=== PATIENT | female | born 1975 | race Caucasian/White ===

== ENCOUNTER 2019-08-10 14:23 | Outpatient (CLI) | payer OTHER, SELFPAY ==
[2019-08-10 14:48] LABS: Basophils % 0.3 %; Eosinophils # 0.1 10^3/uL (0.0-0.8); Eosinophils % 0.5 %; Hematocrit 41.2 % (37.0-47.0); Hemoglobin 13.6 g/dL (11.5-15.3); Lymphocytes % 30.8 %; Mean Corpuscular Hemoglobin 29.1 pg (28.0-34.0); Mean Platelet Volume 10.8 fL (7.4-10.4); Monocytes # 0.5 10^3/uL (0.2-0.9); Monocytes % 5.6 %; Neutrophils # 6.1 10^3/uL (1.8-7.7); Neutrophils % 62.6 %; Nucleated Red Blood Cells % 0 %; Platelet Count 315 10^3/cmm (130-400); Red Blood Count 4.68 10^6/uL (4.1-5.3); Red Cell Distribution Width 12.9 % (12.1-15.1); White Blood Count 9.7 10^3/uL (4.0-10.0)
== END 2019-08-10 14:24 | disposition home or self-care (01) ==
LOC: LAB 14:27
PROVIDERS: Family Provider Family Medicine; PCP Family Medicine; Visit Provider Family Medicine
DX: K85.90 Acute pancreatitis without necrosis or infection, unspecified (principal)
CPT/HCPCS: 36415; 85025; 86140

== ENCOUNTER 2020-04-14 14:42 | Outpatient (CLI) | payer OTHER, SELFPAY ==
--- NOTE | 2020-04-14 15:11 | MM_ITS ---
WS: [id number] BILATERAL DIGITAL SCREENING MAMMOGRAPHY WITH CAD CLINICAL INFORMATION: SCREEN HISTORY: Screening mammogram. No current complaints. COMPARISON: TECHNIQUE: Bilateral CC and MLO views. FINDINGS: The breasts are composed of heterogeneous fibroglandular density tissue, which can limit the detectio n of small underlying mass lesions. Asymmetric density upper inner left breast measuring 17 mm more p rominent compared to previous. Recommend spot compression views and ultrasound for further evaluation . Right breast is unchanged in appearance. IMPRESSION: MM/[place] [id number] BI-RADS: 0-Incomplete: Need additional imaging evaluation FOLLOW UP: Need Additional Imaging RECOMMEND SPOT COMPRESSION VIEWS AND ULTRASOUND LEFT BREAST
== END 2020-04-14 14:43 | disposition home or self-care (01) ==
LOC: RADSHAW 14:50
PROVIDERS: PCP Family Medicine; Visit Provider Family Medicine
DX: Z12.31 Encounter for screening mammogram for malignant neoplasm of breast (principal); N64.89 Other specified disorders of breast
CPT/HCPCS: 77067

== ENCOUNTER 2022-08-11 13:17 | Emergency (ER) | payer OTHER, SELFPAY ==
--- NOTE | 2022-08-11 13:25 | ECG_ITS ---
[facility] Test Date: 2022-08-11 Pat Name: Sue Danielson Department: Room: Gender: Female Vocational Rehabilitation Counselor: : 1975 Requested By: Ty Escobar Order Number: [id number] Gilbert MD: Aggie Ng M.D. Measurements Intervals [place] Rate: 96 P: 25 [place]: 160 QRS: 33 QRSD: 81 T: 26 QT: 355 QTc: 449 Interpretive Statements SINUS RHYTHM No previous ECG available for comparison Electronically Signed On 08-12-2022 10:11:32 OTR FLATBED DRIVER by Aggie Ng M.D. [id number] f
[2022-08-11 13:35] VITALS: BP 209/122; PULSE 92; RESP 17; TEMP 37.1; O2SAT 99; BMI 34.3
[2022-08-11 14:48] LABS: Basophils % 0.3 %; Eosinophils # 0.1 10^3/uL (0.0-0.8); Eosinophils % 0.7 %; Hematocrit 41.4 % (37.0-47.0); Hemoglobin 13.3 g/dL (11.5-15.3); Lymphocytes # 2.5 10^3/uL (0.8-4.8); Lymphocytes % 34.1 %; Mean Corpuscular HGB Conc 32.1 g/dL (30.0-36.0); Mean Corpuscular Hemoglobin 27.3 pg (28.0-34.0); Mean Corpuscular Volume 84.8 fl (81-99); Mean Platelet Volume 10.4 fL (7.4-10.4); Monocytes # 0.5 10^3/uL (0.2-0.9); Monocytes % 7.3 %; Neutrophils # 4.15 10^3/uL (1.8-7.7); Neutrophils % 57.5 %; Nucleated Red Blood Cells % 0 %; Platelet Count 307 10^3/cmm (130-400); Red Blood Count 4.88 10^6/uL (4.1-5.3); Red Cell Distribution Width 13.7 % (12.1-15.1); White Blood Count 7.2 10^3/uL (4.0-10.0)
[2022-08-11 15:07] LABS: Anion Gap 17.1 (5-19); Blood Urea Nitrogen 8 mg/dL (6-20); Calcium 8.9 mg/dL (8.5-10.5); Carbon Dioxide 22 mmol/L (22-29); Chloride 102 mmol/L (98-107); Glomerular Filtration Rate 108.1 mL/min (90-130); Glucose 89 mg/dL (65-115); Osmolality Calculated 282 mOsm/kg (285-295); Potassium 4.1 mmol/L (3.5-5.1); Sodium 137 mmol/L (136-145)
[2022-08-11 15:23] VITALS: BP 182/91; PULSE 78; RESP 16; TEMP 36.9; O2SAT 99
--- NOTE | 2022-08-11 16:22 | W.ED.CHESTPA ---
HPI - Chest Pain General: Chief Complaint: Chest Pain Stated Complaint: High blood pressure Time Seen by Provider: 08/11/22 16:22 History of Present Illness: Ms. Danielson is a 47-year-old lady without known cardiac disease presenting to the emergency department for high blood pressure and Mild chest discomfort. She reports a stressful week last week and having a health screening event for insurance at work where her blood pressure was noted to be elevated. 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 She does endorse occasional palpitations and some mild left-sided chest discomfort. She reports compliance with her medication regimen. Denies any new changes in medications or caffeine intake. Intensity symptoms is mild. Course has persisted. No other specific changes in health, exacerbating, or alleviating factors identified. Onset (ago): hour(s) Timing of current episode: episodic Prior episodes: Yes Onset: during rest Pain location: left chest Pain radiation: none Severity: mild Quality: heaviness Relieving factors: nothing Exacerbating factors: nothing Associated symptoms: Reports palpitations and other Review of Systems General: Reports: 10 or more systems reviewed and unremarkable except in HPI and below Card: Reports: palpitations PFS ED PFSH: Medical History No significant past medical history Social History Smoking and tobacco status: never smoked Second hand smoke exposure: No Alcohol intake: current Alcohol intake frequency: holidays/special occasions only Alcohol type: hard liquor Physical Exam Const: COMMON NORMALS: alert GENERAL APPEARANCE: cooperative and well developed HENMT: COMMON NORMALS: normocephalic and atraumatic HEAD & SCALP: normocephalic and atraumatic Eye: COMMON NORMALS: conjunctivae normal CONJUNCTIVA: Yes conjunctivae normal SCLERA: sclerae normal Neck/C-Spine: COMMON NORMALS: supple GENERAL: Yes trachea midline Resp: COMMON NORMALS: clear to auscultation bilaterally EFFORT & INSPECTION: Yes able to speak in complete sentences AUSCULTATION: clear to auscultation bilaterally Cardio: COMMON NORMALS: regular rate and regular rhythm RATE: regular rate RHYTHM: regular rhythm GI: COMMON NORMALS: Soft to palpation PALPATION: Yes Soft to palpation and No Tenderness to palpation present (GI) Extremity: GENERAL: Yes normal exam except as noted and No edema Neuro: COMMON NORMALS: moves all extremities SENSORIUM/ORIENTATION: Yes alert and No Orientation impaired Psych: COMMON NORMALS: mental status grossly normal and Normal thought process present THOUGHT PROCESS: Normal thought process present Course Vital Signs: Vital signs: Vital Signs Temperature 98.4 F 08/11/22 15:23 Pulse Rate 78 08/11/22 15:23 Respiratory Rate 16 08/11/22 15:23 Blood Pressure 190/110 08/11/22 17:58 Pulse Oximetry 99 08/11/22 15:23 Oxygen Delivery Me thod 08/11/22 15:23 MDM - Chest Pain Medical Decision Making 47-year-old lady presenting with high blood pressure. She has had mild associated chest discomfort. Denies history of similar until recently. Has had increased stress. EKG notable for sinus rhythm with normal axis and intervals, no STEMI. Laboratory studies similar to prior without significant metabolic or hematologic abnormality. Negative initial and 2-hour delta troponin. No evidence of clear etiology of symptoms or endorgan dysfunction. Chest x-ray with no lobar consolidation or pneumothorax. Patient had improvement in blood pressure with Norvasc and clonidine. Most likely etiology of patient's symptoms is hypertension. Patient is low risk by heart score. The results of ED evaluation were discussed with the patient including prescriptions and/or symptomatic cares (if applicable) including appropriate and responsible use, followup plan, and return precautions. The patient verbalized understanding and felt safe for discharge. Medical Records I reviewed the patient's medical records. Lab Data I reviewed the patient's lab results. 08/11/22 14:42 08/11/22 14:42 Radiology Impressions Chest X-Ray 08/11/22 16:29 IMPRESSION: No acute findings. Laboratory Results WBC 7.2 10^3/uL (4.0-10.0) 08/11/22 14:42 RBC 4.88 10^6/uL (4.1-5.3) 08/11/22 14:42 Hgb 13.3 g/dL (11.5-15.3) 08/11/22 14:42 Hct 41.4 % (37.0-47.0) 08/11/22 14:42 MCV 84.8 fl (81-99) 08/11/22 14:42 MCH 27.3 pg (28.0-34.0) L 08/11/22 14:42 MCHC 32.1 g/dL (30.0-36.0) 08/11/22 14:42 RDW 13.7 % (12.1-15.1) 08/11/22 14:42 Plt Count 307 10^3/cmm (130-400) 08/11/22 14:42 MPV 10.4 fL (7.4-10.4) 08/11/22 14:42 Neut % (Auto) 57.5 % 08/11/22 14:42 Lymph % (Auto) 34.1 % 08/11/22 14:42 [place] % (Auto) 7.3 % 08/11/22 14:42 Eos % (Auto) 0.7 % 08/11/22 14:42 Baso % (Auto) 0.3 % 08/11/22 14:42 Neut # (Auto) 4.15 10^3/uL (1.8-7.7) 08/11/22 14:42 Lymph # (Auto) 2.5 10^3/uL (0.8-4.8) 08/11/22 14:42 [place] # (Auto) 0.5 10^3/uL (0.2-0.9) 08/11/22 14:42 Eos # (Auto) 0.1 10^3/uL (0.0-0.8) 08/11/22 14:42 Baso # (Auto) 0.0 10^3/uL (0.0-0.1) 08/11/22 14:42 Nucleated RBC % (auto) 0 % 08/11/22 14:42 Nucleated RBCs # 0.0 /100WBC 08/11/22 14:42 Sodium 137 mmol/L (136-145) 08/11/22 14:42 Potassium 4.1 mmol/L (3.5-5.1) 08/11/22 14:42 Chloride 102 mmol/L (98-107) 08/11/22 14:42 Carbon Dioxide 22 mmol/L (22-29) 08/11/22 14:42 Anion Gap 17.1 (5-19) 08/11/22 14:42 BUN 8 mg/dL (6-20) 08/11/22 14:42 Creatinine 0.6 mg/dL (0.5-0.9) 08/11/22 14:42 GFR Calculation 108.1 mL/min (90-130) 08/11/22 14:42 Glucose 89 mg/dL (65-115) 08/11/22 14:42 Calculated Osmolality 282 mOsm/kg (285-295) L 08/11/22 14:42 Calcium 8.9 mg/dL (8.5-10.5) 08/11/22 14:42 Troponin T Baseline 6 ng/L (0-10) 08/11/22 14:42 Troponin T 120 Minute 6.00 ng/L (0-10) 08/11/22 16:30 Delta Troponin T 0 ABS# (0-10) 08/11/22 16:30 NT-Pro-B Natriuret Pep 143 pg/mL (0-125) H 08/11/22 14:42 TSH 3.34 uIU/mL (0.27-4.20) 08/11/22 14:42 Discharge Plan Discharge Patient Disposition: Home Clinical Impression: Hypertension Condition: Stable Prescriptions: New Norvasc 5 mg tablet 5 mg PO DAILY Qty: 30 0RF No Action fluoxetine 20 mg capsule 20 mg PO DAILY levothyroxine 25 mcg capsule 25 mcg PO DAILY zinc acetate 50 mg (zinc) Capsule 50 mg PO DAILY [place] 1 (28) 1-35 mg-mcg Tablet 1 tab PO DAILY Calcium 500 500 mg calcium (1,250 mg) Tablet 500 mg PO DAILY vitamin E 268 mg (400 unit) Capsule 268 mg PO DAILY Vitex-C-12 Solution See Rx Instructions .ROUTE .COMPLEX Rx Instructions: as directed evening primrose oil 1,300 mg Capsule 1,300 mg PO DAILY Discharge Orders: Discharge ED (Routine); Ordered 08/11/22 Ordered By: Phillip Champion Referrals: Jessica Mendoza MD [Primary Care Provider] - Discharge Diet: Usual diet Discharge Activity: Increase activity as tolerated Patient Instructions: Amlodipine (By mouth), Hypertension (ED) Activity Restrictions/Additional Instructions: Thank you for visiting the emergency department. You were seen and evaluated for high blood pressure and associated symptoms. The exact cause of your symptoms is unclear though does not appear to need hospitalization at this time. Please follow-up with your primary care provider. I will prescribe you a blood pressure medication. Return to the emergency department for anything as discussed or anything else that you are concerned about a feel needs emergency department evaluation. Stand Alone Forms: Work/School Release Coding Level of Care Code ED Sprinkler Worker for Rebekah Lopez
--- NOTE | 2022-08-11 16:29 | XRR_ITS ---
PROCEDURE INFORMATION: Exam: XR Chest Exam date and time: 08/11/2022 4:34 PM Age: 47 years old Clinical indication: Pain and abnormal findings; Other: High blood pressure; Chest pressure; Additional info: Hypertension, palpatations TECHNIQUE: Imaging protocol: Radiologic exam of the chest. Views: 1 view. COMPARISON: No relevant prior studies available. FINDINGS: Lungs: Unremarkable. No consolidation. Pleural spaces: Unremarkable. No pleural effusion. No pneumothorax. Heart/Mediastinum: Unremarkable. No cardiomegaly. Bones/joints: Unremarkable. XR/XR chest 1V portable [id number] IMPRESSION: No acute findings.
--- NOTE | 2022-08-11 16:30 | ECG_ITS ---
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 Measurements Intervals [place] Rate: 86 P: 63 [place]: 153 QRS: 78 QRSD: 90 T: 62 QT: 383 QTc: 461 Interpretive Statements SINUS RHYTHM Compared to ECG 08/11/2022 13:50:26 No significant changes Electronically Signed On 08-12-2022 10:03:21 POSITIVE PRINTER OPERATOR by Aggie Ng M.D. [id number]
[2022-08-11 17:25] LABS: NT Pro B Type Natriuretic Pept 143 pg/mL (0-125); Thyroid Stimulating Hormone 3.34 uIU/mL (0.27-4.20); Troponin(5th) Baseline 6 ng/L (0-10)
[2022-08-11 17:42] VITALS: BP 190/120
[2022-08-11 17:42] LABS: Troponin 5 2HR Delta 0 ABS# (0-10)
[2022-08-11] MEDS: amlodipine 5 mg Tablet PO (17:42)
[2022-08-11] MEDS: cloNIDine 0.1 mg Tablet PO (17:42)
[2022-08-11 17:58] VITALS: BP 190/110
== END 2022-08-11 17:59 | disposition home or self-care (01) ==
PROVIDERS: Emergency Medicine; Emergency Provider Emergency Medicine; PCP Family Medicine
DX: I10 Essential (primary) hypertension (principal)
CPT/HCPCS: 36415; 71045; 80048; 83880; 84443; 84484; 85025; 93005; 99285

== ENCOUNTER 2025-01-24 06:20 | Day surgery (SDC) | payer OTHER, SELFPAY ==
[2025-01-24 06:33] VITALS: BP 127/83; PULSE 93; RESP 18; TEMP 36.3; O2SAT 96; BMI 32.5
--- NOTE | 2025-01-24 06:38 | W.PM.OPSFHP ---
Same Day Surgery H&P Indication for Procedure/HPI DATE OF PROCEDURE: January 24, 2025 CHIEF COMPLAINT/INDICATIONFOR SURGICAL PROCEDURE: encounter for screening colonoscopy PREOP DIAGNOSIS: encounter for screening colonoscopy PLANNED PROCEDURE: Operation Date: 01/24/25 07:15 Proposed Procedures p Colonoscopy 72062 G0105 Z12.11(Not Applicable) - Casey Montaño MD Medications/Allergies* Home Medications ?Medication ?Instructions ?Recorded ?Confirmed ?Type fluoxetine 20 mg capsule 20 mg PO DAILY 09/12/21 01/21/25 History levothyroxine 25 mcg capsule 25 mcg PO DAILY 08/11/22 01/21/25 History vitamin E 268 mg (400 unit) capsule 268 mg PO DAILY 08/11/22 01/21/25 History loratadine 10 mg tablet (Allergy 10 mg PO DAILY 09/26/23 01/21/25 History Relief (loratadine)) losartan 25 mg tablet 25 mg PO DAILY 09/26/23 01/21/25 History Allergies/Adverse Reactions Allergy/AdvReac Type Severity Reaction Status Date / Time Penicillins Allergy Mild ADR-Nausea Verified 01/24/25 06:31 Pertinent History/Comorbid Conditions* Medical History (Updated 08/22/22 @ 00:54 by Phillip Champion MD) No significant past medical history Social History Smoking and tobacco/nicotine status: never used tobacco/nicotine Second hand smoke exposure: No Alcohol intake: current Alcohol intake frequency: holidays/special occasions only Alcohol type: hard liquor Substance/Drug Use: never Pertinent Exam Findings alert, oriented x 3, clear to auscultation bilaterally and regular rate & rhythm Recommendations Surgery/Procedure today Coding Level of Care Code Acute Code for Chg John
[2025-01-24 06:46] LABS: OR HCG Qualitative Urine Negative (Negative)
[2025-01-24 07:35] VITALS: BP 90/53; PULSE 76; RESP 12; TEMP 36.5; O2SAT 95
[2025-01-24 07:40] VITALS: BP 100/69; PULSE 65; RESP 16; O2SAT 97
[2025-01-24 07:50] VITALS: BP 100/69; PULSE 70; RESP 18; O2SAT 99
--- NOTE | 2025-01-24 07:52 | ANES.PREANE2 ---
Pre-Anesthetic Assessment Height/Weight: Height 5 ft 4 in Weight 190 lb Temp Pulse Resp BP Pulse Ox O2 Del Method 97.7 F 65 16 100/69 97 Room Air 01/24/25 07:35 01/24/25 07:40 01/24/25 07:40 01/24/25 07:40 01/24/25 07:40 01/24/25 07:40 Preop Diagnosis: encounter for screening colonoscopy Operation Date: 01/24/25 07:15 Proposed Procedures p Colonoscopy 02632 G0105 Z12.11(Not Applicable) - Casey Montaño MD Was Beta Sherry taken within 24 hours: N/A Was Clonidine taken within 24 hours: N/A Last intake: Intake Last Liquid Date 01/23/25 Last Liquid Time 23:00 Last Solid Date 01/22/25 Last Solid Time 20:00 Social No alcohol and No tobacco Exam alert, oriented x 3, clear to auscultation bilaterally and regular rate & rhythm Airway Submandibular: within normal limits Cervical ROM: within normal limits Mallampati: Class III Dentition: full Anesthetic Plan ASA status: 3 Anesthesia: MAC Other: No prior issues with anesthesia Completed bowel prep History of hypertension on amlodipine and losartan Hypothyroidism on Synthroid METs greater than 4 Plan for MAC anesthesia Medications/Allergies Home Medications ?Medication ?Instructions ?Recorded ?Confirmed ?Last Taken ?Type fluoxetine 20 mg capsule 20 mg PO DAILY 09/12/21 01/21/25 01/21/25 History amlodipine 5 mg tablet (Norvasc) 5 mg PO DAILY #30 tabs 08/11/22 01/21/25 01/21/25 Rx levothyroxine 25 mcg capsule 25 mcg PO DAILY 08/11/22 01/21/25 01/21/25 History vitamin E 268 mg (400 unit) capsule 268 mg PO DAILY 08/11/22 01/21/25 01/21/25 History loratadine 10 mg tablet (Allergy 10 mg PO DAILY 09/26/23 01/21/25 01/21/25 History Relief (loratadine)) losartan 25 mg tablet 25 mg PO DAILY 09/26/23 01/21/25 01/21/25 History Allergies Allergy/AdvReac Type Severity Reaction Status Date / Time Penicillins Allergy Mild ADR-Nausea Verified 01/24/25 06:31 Current Medications Generic Name Dose Route Start Last Admin Trade Name Freq PRN Reason Stop Dose Admin Sodium Chloride 1,000 mls @ 15 mls/hr 01/24/25 06:26 01/24/25 07:45 Sodium Chloride 0.9% IV 01/25/25 06:25 Infused .Q24H PRN Infusion COLONOSCOPY FLUIDS PFSH Anesthesia Medical History No significant past medical history Social History Smoking and tobacco/nicotine status: never used tobacco/nicotine Second hand smoke exposure: No Alcohol intake: current Alcohol intake frequency: holidays/special occasions only Alcohol type: hard liquor Substance/Drug Use: never
--- NOTE | 2025-01-24 08:10 | ANE.PACU2 ---
Inpatient post-anesthesia follow up: Airway intact: Yes Vital signs: Temperature 97.7 F Pulse Rate 70 Respiratory Rate 18 Blood Pressure 100/69 Pulse Oximetry 99 Oxygen Delivery Me thod Room Air Oxygen Flow Rate Fraction of Inspir ed Oxygen Hydration adequate: Yes Nausea and vomiting: No Pain level: 1 Mental status: Baseline
== END 2025-01-24 08:10 | disposition home or self-care (01) ==
PROVIDERS: Student in an Organized Health Care Education/Training Program; PCP Family Medicine; Visit Provider Surgery
PROC: 0DJD8ZZ Inspection of Lower Intestinal Tract, Via Natural or Artificial Opening Endoscopic (ICD-10-PCS; CPT 45378; principal; 2025-01-24 07:15)
DX: Z12.11 Encounter for screening for malignant neoplasm of colon (principal); K64.8 Other hemorrhoids; Z79.899 Other long term (current) drug therapy; Z79.890 Hormone replacement therapy; I10 Essential (primary) hypertension; E03.9 Hypothyroidism, unspecified
CPT/HCPCS: 45378; 81025; J2704; J7030

== ENCOUNTER → 2025-03-24 11:17 | Outpatient (BNVA) | payer OTHER, SELFPAY | PROVIDERS: PCP Family Medicine; Visit Provider Emergency Medicine | DX: R10.9 Unspecified abdominal pain (principal) | CPT/HCPCS: 81000 ==

== ENCOUNTER 2025-03-27 16:28 | Outpatient (CLI) | payer OTHER, SELFPAY ==
--- NOTE | 2025-03-27 16:40 | XR_ITS ---
WS: [id number] Lumbar spine, 3 views, 03/27/2025 Clinical Data: LOW BACK PAIN Comparison: None. Findings: No compression fractures or subluxation is seen. No disc space narrowing is seen. The transverse processes and SI joints are normal. XR/XR lumbar spine 2-3V* [id number] Impression: Negative lumbar spine.
== END 2025-03-27 16:29 | disposition home or self-care (01) ==
PROVIDERS: PCP Family Medicine; Visit Provider Family Medicine
DX: M54.50 Low back pain, unspecified (principal)
CPT/HCPCS: 72100

== ENCOUNTER → 2025-07-12 13:29 | Outpatient (BNVA) | payer OTHER, SELFPAY | PROVIDERS: PCP Family Medicine; Visit Provider Nurse Practitioner Family | DX: J02.9 Acute pharyngitis, unspecified (principal) | CPT/HCPCS: 87880 ==